=== PATIENT | male | born 1975 | race Caucasian/White ===

== ENCOUNTER 2021-02-25 10:41 | Outpatient (CLI) | payer OTHER, SELFPAY ==
[2021-02-25 11:21] LABS: Creatinine Urine 40.16 mg/dL (40-278); MALB Creatinine Ratio 32.3 mg/g (0-30); Microalbumin Urine Random < 13.0 mg/L
[2021-02-25 11:36] LABS: Hemoglobin A1C 9.8 % (<5.7)
[2021-02-25 12:35] LABS: Alanine Aminotransferase 56 U/L (16-63); Albumin Level 3.5 g/dL (3.4-5.0); Alkaline Phosphatase 72 U/L (46-116); Anion Gap 10 mmol/L (8-16); Aspartate Amino Transferase 23 U/L (15-37); Bilirubin,Total 0.6 mg/dL (0.00-1.00); Blood Urea Nitrogen 16 mg/dL (7-18); Calcium 8.4 mg/dL (8.5-10.1); Carbon Dioxide 27 mmol/L (21-32); Chloride 95 mmol/L (98-108); Cholesterol 252 mg/dL (0-200); Estimated Glomerular Filt Rate 53; HDL Direct 26 mg/dL (40-60); Potassium 4.4 mmol/L (3.5-5.1); Sodium 132 mmol/L (136-145); Total Protein 6.8 g/dL (6.4-8.2)
[2021-02-25 12:47] LABS: Osmolality Calculated 304 mOsm/kg (285-295)
[2021-02-25 12:48] LABS: LDL Cholesterol Calculated 68 mg/dL (<130); Triglycerides 792 mg/dL (0-150)
[2021-02-25 12:49] LABS: LDL Cholesterol Direct 105 mg/dL (0-130)
[2021-02-25 12:59] LABS: Glucose 627 mg/dL (70-99)
== END 2021-02-25 10:42 | disposition home or self-care (01) ==
PROVIDERS: PCP Family Medicine; Visit Provider Family Medicine
DX: E11.9 Type 2 diabetes mellitus without complications (principal)
CPT/HCPCS: 36415; 80053; 80061; 82043; 83036; 83721

== ENCOUNTER 2021-04-01 12:27 | Outpatient (RCR) | payer OTHER, SELFPAY ==
[2021-04-01 12:38] VITALS: BMI 30.4
[2021-04-01 12:43] VITALS: BMI 30.4
== END 2021-06-17 09:14 | disposition home or self-care (01) ==
LOC: ANHDMC 12:27
PROVIDERS: PCP Internal Medicine; Referring Provider Internal Medicine; Visit Provider Internal Medicine
DX: E11.9 Type 2 diabetes mellitus without complications (principal); Z71.3 Dietary counseling and surveillance
CPT/HCPCS: 97802

== ENCOUNTER 2022-12-07 13:18 | Outpatient (CLI) | payer OTHER, SELFPAY ==
[2022-12-07 13:53] LABS: Hemoglobin A1C 11.6 % (<5.7)
== END 2022-12-07 13:19 | disposition home or self-care (01) ==
PROVIDERS: PCP Family Medicine; Visit Provider Family Medicine
DX: E11.9 Type 2 diabetes mellitus without complications (principal)
CPT/HCPCS: 36415; 83036

== ENCOUNTER 2023-01-22 10:42 | Outpatient (CLI) | payer OTHER, SELFPAY ==
--- NOTE | ~2023-01-22 | CT_ITS ---
CT of the Abdomen: Indication: Abdominal pain Technique: 2.5 mm axial scans were obtained through the abdomen prior to and following following int ravenous administration of 100 cc of Omnipaque 350. Dose reduction technique was used on this scan by utilizing automated exposure control and iterative reconstruction technique. The dose-length product (DLP) was 1980.59 mGy-cm. Findings: Scans through the lung bases are unremarkable. There is a 3 cm hypodense right hepatic lobe lesion with discontinuous nodular enhancement on the por aubrie venous phase, compatible with hemangioma (series 6 image 23). There are several additional subcen timeter hypodensities in the liver, which could reflect positional cysts or hemangiomas. The spleen, pancreas, gallbladder, and adrenal glands are within normal limits. There is a 4 mm stone in the proximal left ureter (series 2 image 67), without significant hydronephr osis or hydroureter. Additional bilateral nonobstructing renal stones are present, measuring up to ap proximately 6 mm bilaterally. No right ureteral stone or right hydronephrosis seen. No evidence of ao rtic aneurysm. No lymphadenopathy. Visualized bowel loops are unremarkable. No ascites. Impression: 4 mm proximal left ureteral stone without significant hydronephrosis. Additional bilateral nonobstructing renal stones, as detailed above. Hepatic hemangiomas and possibly small cysts, as detailed above. Reviewed, dictated and finalized at [facility]. 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 Additional bilateral nonobstructing renal stones, as detailed above. Hepatic hemangiomas and possibly small cysts, as detailed above.
[2023-01-22 11:01] LABS: Estimated Glomerular Filt Rate > 60
== END 2023-01-22 10:43 ==
LOC: MICIMG 10:43
PROVIDERS: PCP Internal Medicine Endocrinology, Diabetes & Metabolism; Visit Provider Internal Medicine Endocrinology, Diabetes & Metabolism
DX: R10.9 Unspecified abdominal pain (principal); N20.2 Calculus of kidney with calculus of ureter
CPT/HCPCS: 74170; Q9967

== ENCOUNTER 2023-02-09 06:02 | Emergency (ER) | payer OTHER, SELFPAY ==
[2023-02-09] VITALS (28 sets, daily range): BP systolic 113–147; BP diastolic 76–98; PULSE 70–85; RESP 15–16; TEMP 36.7; O2SAT 92–100
--- NOTE | ~2023-02-09 | CT_ITS ---
Non-contrast CT scan of the Abdomen and Pelvis Clinical indication: Flank pain Technique: 2.5 mm axial scans were obtained through the abdomen and pelvis without intravenous or or al contrast. Dose reduction technique was used on this scan by utilizing automated exposure control a nd iterative reconstruction technique. The dose-length product (DLP) was 453.00 mGy-cm. COMPARISON: 01/22/2023 Findings: Images through the lung bases reveal no abnormalities. There is mild left hydroureteronephrosis and left perinephric stranding. Suspected small left UVJ sto ne present, but evaluation in the pelvis is extremely limited due to extensive streak artifact from b ilateral hip arthroplasties. Additional bilateral nonobstructing renal stones are present in the kidn eys. No right ureteral stone or right hydronephrosis is identified. Stable small probable hepatic cysts noted. The spleen, pancreas, gallbladder, and adrenals appear nor mal. There is no aortic aneurysm. There is no evidence of bowel obstruction. Images through the pelvis are degraded by extensive streak artifact from bilateral hip arthroplasties . There is no evidence of ascites or lymphadenopathy. Visualized urinary bladder is grossly unremarka ble. Bilateral L5 pars interarticularis defects are present, without subluxation. Impression: Mild left hydroureteronephrosis and left perinephric stranding. There is a suspected small left UVJ r egion stone, but pelvic evaluation is markedly limited due to extensive streak artifact from bilatera l hip arthroplasties. Additional bilateral nonobstructing renal stones. Reviewed, dictated and finalized at location . Impression: Mild left hydroureteronephrosis and left perinephric stranding. There is a susp ected small left UVJ region stone, but pelvic evaluation is markedly limited du e to extensive streak artifact from bilateral hip arthroplasties. Additional bilateral nonobstructing renal stones.
[2023-02-09 06:19] LABS: Basophils Absolute Auto 0.1 K/mm3 (0.0-0.1); Eosinophils Absolute Auto 0.3 K/mm3 (0-0.3); Eosinophils Percent Auto 2.1 % (0-4.4); Hematocrit 50.9 % (42.0-52.0); Hemoglobin 17.2 g/dL (14.0-18.0); Immature Granulocyte Absolute 0.04 K/mm3 (0.00-0.031); Immature Granulocyte Percent A 0.3 % (0-0.5); Lymphocytes Absolute Auto 1.85 K/mm3 (0.9-3.2); Lymphocytes Percent Auto 15.1 % (18.3-44.2); Mean Corpuscular HGB Conc 33.8 g/dl (32-36); Mean Corpuscular Volume 91.9 fl (80-100); Mean Platelet Volume 9.7 fl (7.4-10.4); Monocytes Percent Auto 8.5 % (2.6-8.5); Neutrophils Absolute Auto 8.9 K/mm3 (1.3-6.7); Platelet Count Result 186 k/mm3 (150-375); Red Blood Count 5.54 M/mm3 (4.6-6.20); Red Cell Distribution Width 12.1 % (11.5-14.5); White Blood Count 12.2 K/mm3 (4.5-10.0)
--- NOTE | 2023-02-09 07:14 | PC.NURSE ---
Patient report received from MIKO Michael. All questions answered and care of patient assumed.
--- NOTE | 2023-02-09 07:30 | PC.NURSE ---
Dr. Govea at bedside to assess pt.
--- NOTE | 2023-02-09 07:41 | ED.GENADULT ---
HPI - General Adult General Chief complaint: Urogenital-Male Stated complaint: kidney stones? Time Seen by Provider: 02/09/23 07:12 History of Present Illness HPI narrative: 47-year-old male with history of kidney stones diagnosed approximately 3 weeks ago presenting to the emergency department for evaluation of worsening left flank pain. Patient states that he is scheduled to follow-up with urology, Dr. Wagoner. patient reports he has been taking Flomax and does have a few left. Patient states he has used the last of his narcotic pain medication. Patient reports that the pain had been feeling better but then acutely worsened last night at 11 PM. Patient describes worsening flank pain with associated nausea. Patient is scheduled to have follow-up with her in a few weeks for possible lithotripsy. Related Data Allergies Allergy/AdvReac Type Severity Reaction Status Date / Time morphine AdvReac Unknown Unknown Verified 02/09/23 06:03 Review of Systems Review of Systems: All systems reviewed & are unremarkable except as noted in HPI and below PMFSH Past Medical History Medical History Type 2 diabetes mellitus Surgical History Surgical History History of hip surgery Family History Family History Father Alcoholism Mother Diabetes mellitus Heart disease Depression Anxiety Grandparent Cerebrovascular accident Grandparent Cerebrovascular accident Social History Social History Smoking packs per day: 1 Smoking cigarettes per day: 20.0 Years smoked: 25 Smoking pack-years: 25.00 Smoking status: Current every day smoker Tobacco type: cigarettes Alcohol intake: never Substance use: never Lack of Transportation: No Lack of Food: Never True Current Housing: I Have Housing Concerned About Future Housing: No Difficulty Paying Gas/Electric Bills: No Difficulty Paying for Meds: No Currently Unemployed: No Education: High School Diploma/GED Difficulty w/ Childcare or Family Care: No Living arrangements: alone Occupation/Education: occupation 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 HEAD: normocephalic, atraumatic. EYES: PERRLA/EOMI, conjunctivae clear. NOSE: Normal no drainage NECK: Supple. No adenopathy, no masses. RESPIRATORY: Airway patent, respirations nonlabored. Clear to auscultation bilaterally, no rales, rhonchi, wheezing. CARDIOVASCULAR: Regular rate and rhythm without murmurs rubs or gallops. ABDOMINAL: Soft, nontender, nondistended, normal bowel sounds MUSCULOSKELETAL: Moves all extremities. Strength/ROM intact, No edema, No calf tenderness. NEURO: Alert. Cranial nerves II through XII intact. Grossly intact SKIN: Warm, dry. Normal Color Course Course Emergency Course: 47-year-old male with recurrent flank pain secondary to kidney stones. Patient does have a mild leukocytosis of 12.2 but is afebrile. UA shows hematuria but no concern for underlying urinary tract infection. Patient has normal kidney function. Patient was treated with IV Toradol and states his pain is now controlled. Patient was offered additional medications for pain control and nausea control at home. Patient states he will have close follow-up with his urologist as scheduled. All questions and concerns were addressed and patient was comfortable with the plan for discharge and close follow-up. Vital Signs Vital signs: Vital Signs Temperature 98.1 F 02/09/23 06:06 Pulse Rate 85 02/09/23 06:06 Respiratory Rate 16 02/09/23 06:06 Blood Pressure 147/91 H 02/09/23 06:06 Pulse Oximetry 100 02/09/23 0
[2023-02-09] MEDS: fentaNYL CITRATE INJ (*CRX) 100 MCG/2 ML VIAL IV PUSH ×2 (07:57→09:15)
[2023-02-09] MEDS: ONDANSETRON INJ 4 MG/2 ML VIAL IV PUSH (07:57)
[2023-02-09] MEDS: SODIUM CHLORIDE 0.9% IV 1,000 ML 999 ML IV CONT (08:46)
--- NOTE | 2023-02-09 09:12 | PC.NURSE ---
Patient ambulatory to the with steady gait. Urine sample obtained.
[2023-02-09 09:33] LABS: Appearance Urine Clear (Clear); Bacteria Urine None Seen /hpf; Bilirubin Urine Negative (Negative); Blood Urine 1+ (Negative); Color Urine Yellow (Yellow); Glucose Urine UA 3+ mg/dL (Negative); Ketones Urine Negative (Negative); Leukocyte Esterase Ur Negative LEU/UL (Negative); Nitrate Urine Negative (Negative); Non Pathogenic Casts 0-2; Protein Urine Negative (Negative); Specific Grav Ur 1.017 (1.001-1.035); Squamous Epithelial Cell Urine None seen /hpf (Few); Urobilinogen Urine 0.2 mg/dL (<2.0); WBC Urine 0-5 /hpf
[2023-02-09 09:49] LABS: Add Urine Microscopic? YES
[2023-02-09] MEDS: KETOROLAC 15 MG/ML VIAL (*BKC) IV PUSH (09:57)
[2023-02-09 10:46] LABS: Alanine Aminotransferase 32 U/L (6-50); Alkaline Phosphatase 62 U/L (38-126); Anion Gap 2 mmol/L (8-16); Aspartate Amino Transferase 31 U/L (17-59); Bilirubin,Total 0.7 mg/dL (0.2-1.3); Blood Urea Nitrogen 14 mg/dL (9-20); Calcium 8.2 mg/dL (8.4-10.2); Carbon Dioxide 28 mmol/L (22-30); Chloride 105 mmol/L (98-107); Estimated CRCL calculation 95 ml/min; Estimated Glomerular Filt Rate > 60; Glucose 169 mg/dL (65-110); Sodium 135 mmol/L (137-145)
== END 2023-02-09 11:17 | disposition home or self-care (01) ==
PROVIDERS: Internal Medicine Interventional Cardiology; Emergency Provider Emergency Medicine; PCP Urology
DX: N13.2 Hydronephrosis with renal and ureteral calculous obstruction (principal); E11.9 Type 2 diabetes mellitus without complications; F17.210 Nicotine dependence, cigarettes, uncomplicated; Z79.84 Long term (current) use of oral hypoglycemic drugs
CPT/HCPCS: 36415; 74176; 80053; 81001; 85025; 96361; 96374; 96375; 96376; 99284; J1885; J2405; J3010; J7030

== ENCOUNTER 2023-02-15 15:16 | Outpatient (CLI) | payer OTHER, SELFPAY ==
[2023-02-15 17:35] LABS: Bacteria Urine None Seen /hpf; Non Pathogenic Casts 0-2; RBC Urine 51-100 /hpf (0-2); Squamous Epithelial Cell Urine None seen /hpf (Few); WBC Urine 0-5 /hpf (0-3)
[2023-02-15 18:12] LABS: Appearance Urine Clear (Clear); Bilirubin Urine Negative (Negative); Blood Urine 3+ (Negative); Color Urine Yellow (Yellow); Glucose Urine UA 2+ mg/dL (Negative); Ketones Urine Negative (Negative); Leukocyte Esterase Ur Negative LEU/UL (NEGATIVE); Nitrate Urine Negative (Negative); Protein Urine Negative (Negative); Specific Grav Ur >= 1.030 (1.001-1.035); Urobilinogen Urine 0.2 mg/dL (<2.0); pH Urine 5.5 (5.0-9.0)
[2023-02-15 18:13] LABS: Add Urine Microscopic? YES
== END 2023-02-15 15:17 | disposition home or self-care (01) ==
LOC: ANHLAB 15:17
PROVIDERS: PCP Urology; Visit Provider Family Medicine
DX: R30.0 Dysuria (principal)
CPT/HCPCS: 81001; 87086

== ENCOUNTER 2023-02-18 08:33 | Outpatient (CLI) | payer OTHER, SELFPAY ==
--- NOTE | ~2023-02-18 | XR_ITS ---
Supine and upright views of the abdomen Clinical history: Ureteral stone Findings: Bowel gas pattern is nonspecific. No evidence for obstruction or free air. Bilateral lower pole renal stones present, measuring 8 mm on the right, and 6 mm on the left. Bilateral hip arthropla sties noted. Impression: Bilateral lower pole renal stones, as detailed above. Reviewed, dictated and finalized at location . Impression: Bilateral lower pole renal stones, as detailed above.
--- NOTE | ~2023-02-18 | US_ITS ---
EXAMINATION: US retroperitoneal comp DATE: 02/18/2023 09:16 INDICATION: Ureteral calculi TECHNIQUE: Multiple ultrasound grayscale images of the kidneys were obtained. COMPARISON: CT dated 02/09/2023 FINDINGS: The right kidney measures 11.1 x 4.5 x 5.5 cm. The left kidney measures 12.2 x 5.7 x 5.5 cm. The kidn eys demonstrate normal echogenicity. Nonobstructing echogenic and shadowing renal stone stones measur ing 7 mm the lower pole of the right kidney and 8 mm at the lower pole of the left kidney. There is a poorly defined 7 mm echogenic focus at the left ureterovesicular junction consistent with a stone bu t which may resume the size given the relatively small amount of posterior acoustic shadowing. There is no hydronephrosis in either kidney. The bladder is normal with bilateral ureteral jets visualized with color Doppler. IMPRESSION: 1. Bilateral nephrolithiasis with nonobstructing stone at the left ureterovesicular junction. Given the prominent streak artifact on prior CT limiting assessment for size would consider correlation wit h KUB. Reviewed, dictated and finalized at location A. IMPRESSION: 1. Bilateral nephrolithiasis with nonobstructing stone at the left ureterovesi cular junction. Given the prominent streak artifact on prior CT limiting assess ment for size would consider correlation with KUB.
== END 2023-02-18 08:34 | disposition home or self-care (01) ==
LOC: ANHIMG 08:35
PROVIDERS: PCP Urology; Visit Provider Urology
DX: N20.1 Calculus of ureter (principal)
CPT/HCPCS: 74018; 76770

== ENCOUNTER 2023-09-13 16:25 | Outpatient (CLI) | payer OTHER, SELFPAY ==
--- NOTE | ~2023-09-13 | XR_ITS ---
EXAMINATION: XR abdomen/kub 1V DATE: 09/13/2023 16:36 INDICATION: Ureteral calculi. TECHNIQUE: A supine view of the abdomen on 2 radiographs was obtained. COMPARISON: CT abdomen and pelvis 02/09/2023, abdomen radiographs 02/18/2023 FINDINGS: There are no dilated loops of bowel. 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 There is a 6 mm stone in left kidney. IMPRESSION: 1. 6 mm left kidney stone. Reviewed, dictated and finalized at location E. IMPRESSION: 1. 6 mm left kidney stone.
== END 2023-09-13 16:26 | disposition home or self-care (01) ==
PROVIDERS: PCP Urology; Visit Provider Urology
DX: N20.2 Calculus of kidney with calculus of ureter (principal)
CPT/HCPCS: 74018

== ENCOUNTER 2023-11-09 11:30 | Emergency (ER) | payer OTHER, SELFPAY ==
[2023-11-09 11:38] VITALS: BP 135/82; PULSE 111; RESP 20; TEMP 39.2; O2SAT 96
--- NOTE | 2023-11-09 12:43 | ED.URI ---
HPI - URI/Sore Throat General Chief Complaint: Upper Respiratory Infection Stated Complaint: Sore Throat Time Seen by Provider: 11/09/23 12:44 Source: patient Mode of arrival: ambulatory Limitations: no limitations History of Present Illness HPI Narrative: 48 year old male who presents to [facility] care with complaints of fever,sore throat, headache, body aches and cough since 2 pm yesterday. Patient reports that he has not noted any shortness of breath or any wheezing. Patient states that he has taken some Tylenol for his symptoms.Patient reports that he has white spot in the back of his throat. MD elicited complaint: fever, cough, sore throat and other (headaches and body aches) Pertinent past history: pneumonia Onset (ago): day(s) (since 2pm yesterday) Pain scale (0-10): 8 Able to tolerate fluids by mouth: Yes Exacerbating factors: swallowing Treatments prior to arrival: acetaminophen Related Data Home Medications Medication Instructions Recorded Confirmed metformin 500 mg tablet,extended 500 mg PO DAILY 11/09/23 11/09/23 release 24 hr Allergies Allergy/AdvReac Type Severity Reaction Status Date / Time morphine AdvReac Unknown Unknown Verified 11/09/23 12:19 Review of Systems Review of Systems: CONSTITUTIONAL:reports malaise, chills, sweats, or fever. EYES: Denies visual changes, redness, or discharge. ENT: Reports rhinorrhea, congestion, sinus pain, no otalgia and positive for sore throat. CARDIOVASCULAR: Denies chest pain, palpitations, or edema. RESPIRATORY: Reports cough.? Denies dyspnea. GASTROINTESTINAL: Denies abdominal pain, nausea, vomiting, diarrhea SKIN: Denies rash or itching. MUSCULOSKELETAL:reports myalgia. NEUROLOGIC: Reports headache. All systems reviewed & are unremarkable except as noted in HPI and below PMFSH Past Medical History Medical History Type 2 diabetes mellitus Surgical History Surgical History History of hip surgery Family History Family History Father Alcoholism Mother Diabetes mellitus Heart disease Depression Anxiety Grandparent Cerebrovascular accident Grandparent Cerebrovascular accident Social History Social History Smoking packs per day: 1 Smoking cigarettes per day: 20.0 Years smoked: 25 Smoking pack-years: 25.00 Smoking status: Current every day smoker Tobacco type: cigarettes Alcohol intake: never Substance use: never Lack of Transportation: No Lack of Food: Never True Current Housing: I Have Housing Concerned About Future Housing: No Difficulty Paying Gas/Electric Bills: No Difficulty Paying for Meds: No Currently Unemployed: No Education: High School Diploma/GED Difficulty w/ Childcare or Family Care: No Living arrangements: alone Occupation/Education: occupation 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 There is no relevant family history pertinent to the presenting complaint Exam Narrative: GENERAL: Well-appearing, well -nourished, and in no acute distress. HEAD: Normocephalic EYES: PERRLA, conjunctivae clear ENT: Nares clear, turbinates edematous and erythematous, clear discharge. Mucous membranes moist. TM pearly campos with dull light reflex bilaterally; no tragal tenderness. Oropharynx erythematous without lesions. Tonsils enlarged and with white exudate, no drooling, no hoarseness, no trismus, uvula midline.post nasal drainage NECK: Supple. lymphadenopathy CHEST: Clear to auscultation, breath sounds equal. No wheezing, rhonchi, rales, or stridor. No resp
[2023-11-09 12:45] VITALS: TEMP 38.3
== END 2023-11-09 13:05 | disposition home or self-care (01) ==
PROVIDERS: Emergency Provider Registered Nurse
DX: J02.9 Acute pharyngitis, unspecified (principal); Z20.822 Contact with and (suspected) exposure to COVID-19; F17.210 Nicotine dependence, cigarettes, uncomplicated; E11.9 Type 2 diabetes mellitus without complications; Z79.84 Long term (current) use of oral hypoglycemic drugs
CPT/HCPCS: 87081; 87426; 87804; 87880; 99213; C9803; G0463

== ENCOUNTER → 2023-11-15 16:38 | Outpatient (CLI) | payer OTHER, SELFPAY ==
--- NOTE | ~2023-11-15 | XR_ITS ---
EXAMINATION: XR chest 2V 11/15/2023 16:52 INDICATION: Shortness of breath PROCEDURE: 2 view chest COMPARISON: No prior studies for comparison. FINDINGS: The lungs are clear. The cardiomediastinal silhouette is within normal limits. There are no pleural effusions. There is no pneumothorax suspected. IMPRESSION: 1: NO ACUTE CARDIOPULMONARY DISEASE. Reviewed, dictated and finalized at location A. TANNER
== END ==
PROVIDERS: PCP Family Medicine; Visit Provider Family Medicine
DX: J39.8 Other specified diseases of upper respiratory tract (principal)
CPT/HCPCS: 71046

== ENCOUNTER 2023-12-06 10:55 | Emergency (ER) | payer OTHER, SELFPAY ==
[2023-12-06 11:02] VITALS: BP 137/89; PULSE 106; RESP 20; TEMP 37.5; O2SAT 96
--- NOTE | 2023-12-06 11:13 | ED.URI ---
HPI - URI/Sore Throat General Chief Complaint: Upper Respiratory Infection Stated Complaint: sore throat Time Seen by Provider: 12/06/23 11:13 History of Present Illness HPI Narrative: 48-year-old male presented for complaint of left-sided sore throat for about 3 weeks, and has started to have right-sided throat pain for 2 days. He endorses painful swallowing has not been able to eat x2 days, and states he coughs on water. States he feels like is swallowing glass, and endorses nausea and fever. He states his symptoms started as a tonsil stone on the left for which he was seen at [facility] on 11/09 and prescribed amoxicillin (neg strep), and has repeatedly tried to remove the tonsil stone with water picks, salt water gargles etc, and states it is just worsening. Related Data Home Medications Medication Instructions Recorded Confirmed metformin 500 mg tablet,extended 500 mg PO DAILY 11/09/23 11/15/23 release 24 hr Allergies Allergy/AdvReac Type Severity Reaction Status Date / Time morphine AdvReac Unknown Unknown Verified 11/15/23 16:19 Review of Systems Review of Systems: CONSTITUTIONAL: Denies body aches; reports fever, chills EYES: Denies visual changes, redness, or discharge. ENT: Reports throat pain Denies rhinorrhea, congestion, or otalgia. CARDIOVASCULAR: Denies chest pain, palpitations, or edema. RESPIRATORY: Denies dyspnea. GASTROINTESTINAL: Denies abdominal pain, vomiting, or diarrhea. SKIN: Denies rash, itching, or wounds. MUSCULOSKELETAL: Denies back pain, joint pain, or myalgia. NEUROLOGIC: Denies headache PMFSH Past Medical History Medical History Type 2 diabetes mellitus Surgical History Surgical History History of hip surgery Family History Family History Father Alcoholism Mother Diabetes mellitus Heart disease Depression Anxiety Grandparent Cerebrovascular accident Grandparent Cerebrovascular accident Social History Social History Smoking packs per day: 1 Smoking cigarettes per day: 20.0 Years smoked: 25 Smoking pack-years: 25.00 Smoking status: Current every day smoker Tobacco type: cigarettes Alcohol intake: never Substance use: never Do You Feel Safe in your Home?: Yes Lack of Transportation: No Lack of Food: Never True Current Housing: I Have Housing Concerned About Future Housing: No Difficulty Paying Gas/Electric Bills: No Difficulty Paying for Meds: No Currently Unemployed: No Education: High School Diploma/GED Difficulty w/ Childcare or Family Care: No Living arrangements: alone Occupation/Education: occupation 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 EYES: conjunctivae clear ENT: Mucous membranes moist. TMs pearly campos with normal light reflex bilaterally; no tragal tenderness. Oropharynx severely erythematous Tonsils enlarged 3+ L>R with exudate; soft palate erythema/swelling noted. Reports pain opening mouth. No drooling, no trismus, uvula midline. No tripod positioning, hot potato voice NECK: Supple. bilateral anterior cervical lymphadenopathy CHEST: Clear to auscultation, breath sounds equal. No respiratory distress, speaks in full sentences. HEART: Regular rate and rhythm. No murmur heard. SKIN: Warm, dry, no rash. NEURO: Alert and oriented x3. Course Course Emergency Course: Patient is aware of diagnosis, understands and agrees to treatment plan. Anticipatory guidance given. Patient agrees to follow-up as directed and is aware of reasons to seek care at the emergency department. Portions of this record may gill
== END 2023-12-06 11:35 | disposition short-term general hospital (02) ==
LOC: EXPBETH 10:59
PROVIDERS: Emergency Provider Nurse Practitioner Family
DX: J01.90 Acute sinusitis, unspecified (principal); F17.210 Nicotine dependence, cigarettes, uncomplicated; E11.9 Type 2 diabetes mellitus without complications
CPT/HCPCS: 87081; 87880; 99213; G0463

== ENCOUNTER 2023-12-06 12:05 | Emergency (ER) | payer OTHER, SELFPAY ==
--- NOTE | ~2023-12-06 | CT_ITS ---
EXAMINATION: CT soft tissue neck wo con DATE: 12/06/2023 13:05 INDICATION: Sore throat. Swollen throat. TECHNIQUE: Computed tomography (CT) of the neck was performed without intravenous contrast. Automated exposure control and iterative reconstruction technique were employed. The dose-length product was 5 13.14 mGy-cm. COMPARISON: None FINDINGS: The palatine tonsils are enlarged. There is thickening of the epiglottis. No abscess. There is a 17 x 14 mm high right internal jugular chain lymph node. There is mild mucosal thickening in th e paranasal sinuses. There is mild cervical spondylosis. IMPRESSION: 1. Enlarged palatine tonsils and mucosal thickening of the epiglottis, consistent with inflammation. No abscess. 2. Enlarged high right internal jugular chain lymph node, likely reactive. Reviewed, dictated and finalized at location A. HEAD FILLER IMPRESSION: 1. Enlarged palatine tonsils and mucosal thickening of the epiglottis, consiste nt with inflammation. No abscess. 2. Enlarged high right internal jugular chain lymph node, likely reactive.
[2023-12-06 12:30] VITALS: BP 149/87; PULSE 95; RESP 16; TEMP 36.4; O2SAT 95
--- NOTE | 2023-12-06 12:48 | ED.GENADULT ---
HPI - General Adult General Chief complaint: Unspecified Stated complaint: sore throat, r/o abcess Time Seen by Provider: 12/06/23 16:50 History of Present Illness HPI narrative: Lucius Flores is a 48 y/o male who presents with reports of seeing his PCP 3 weeks ago for sore throat and was told he has a tonsillar stone and he was negative for strep/ flu/ covid - he feltl better the past couple weeks but woke up this morning wtih severe sore throat/ feels swollen / fever this AM of 101.3. He feels that there is more swelling on the right side of his throat - On exam difficult to see more swelling on the right appears to have bilateral tonsillar edema with exudate Tonsils +4 Related Data Home Medications Medication Instructions Recorded Confirmed metformin 500 mg tablet,extended 500 mg PO DAILY 11/09/23 11/15/23 release 24 hr Allergies Allergy/AdvReac Type Severity Reaction Status Date / Time morphine AdvReac Unknown Unknown Verified 12/06/23 12:32 Review of Systems Review of Systems: All systems reviewed & are unremarkable except as noted in HPI and below PMFSH Past Medical History Medical History Type 2 diabetes mellitus Surgical History Surgical History History of hip surgery Family History Family History Father Alcoholism Mother Diabetes mellitus Heart disease Depression Anxiety Grandparent Cerebrovascular accident Grandparent Cerebrovascular accident Social History Social History Smoking packs per day: 1 Smoking cigarettes per day: 20.0 Years smoked: 25 Smoking pack-years: 25.00 Smoking status: Current every day smoker Tobacco type: cigarettes Alcohol intake: never Substance use: never Do You Feel Safe in your Home?: Yes Lack of Transportation: No Lack of Food: Never True Current Housing: I Have Housing Concerned About Future Housing: No Difficulty Paying Gas/Electric Bills: No Difficulty Paying for Meds: No Currently Unemployed: No Education: High School Diploma/GED Difficulty w/ Childcare or Family Care: No Living arrangements: alone Occupation/Education: occupation 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 Gender identity (if verbalized by the patient): Male Spiritual care concerns: No Exam Const: General: cooperative, healthy appearing, alert and awake HENMT: Mouth: Yes Abnormal oral and palatal mucosa present (bilateral tonsillar edema) erythematous and edematous Eyes: General: appearance normal, both eyes and all related structures Chest: Chest palpation & inspection: normal inspection of the chest Resp: Effort & Inspection: normal respiratory effort Auscultation: clear to auscultation bilaterally Cardio: Rate: regular rate Skin: General skin exam: normal color Neuro: General: oriented to person, oriented to place and oriented to time Course Vital Signs Vital signs: Vital Signs Temperature 36.4 C 12/06/23 12:30 Pulse Rate 95 12/06/23 12:30 Respiratory Rate 16 12/06/23 12:30 Blood Pressure 149/87 H 12/06/23 12:30 Pulse Oximetry 95 12/06/23 12:30 Temperature 37.4 C 12/06/23 16:55 Pulse Rate 90 12/06/23 20:26 Respiratory Rate 17 12/06/23 20:26 Blood Pressure 132/76 12/06/23 20:26 Pulse Oximetry 94 12/06/23 20:26 Medical Decision Making Vital Signs Vital Signs: Vital Signs Temperature 36.4 C 12/06/23 12:30 Pulse Rate 95 12/06/23 12:30 Respiratory Rate 16 12/06/23 12:30 Blood Pressure 149/87 H 12/06/23 12:30 Pulse Oximetry 95 12/06/23 12:30 Temperature 37.4 C 12/06/23 16:55 Pulse Rate 90 12/06/23 20:26 Respiratory Rate 17 12/06/23 20:26 Blood Pressure 132/76 12/06/23 20:26 Pulse Oximetry 94 01/0
[2023-12-06 15:05] LABS: Basophils Absolute Auto 0.1 K/mm3 (0.0-0.1); Basophils Percent Auto 0.6 % (0.2-1.2); Eosinophils Absolute Auto 0.2 K/mm3 (0-0.3); Eosinophils Percent Auto 1.3 % (0-4.4); Hematocrit 47.4 % (42.0-52.0); Hemoglobin 16.2 g/dL (14.0-18.0); Immature Granulocyte Absolute 0.06 K/mm3 (0.00-0.031); Immature Granulocyte Percent A 0.3 % (0-0.5); Lymphocytes Absolute Auto 2.31 K/mm3 (0.9-3.2); Lymphocytes Percent Auto 13.2 % (18.3-44.2); Mean Corpuscular HGB Conc 34.2 g/dl (32-36); Mean Corpuscular Hemoglobin 30.1 pg (26-34); Mean Corpuscular Volume 87.9 fl (80-100); Mean Platelet Volume 9.7 fl (7.4-10.4); Monocytes Absolute Auto 1.4 K/mm3 (0.1-0.6); Monocytes Percent Auto 7.9 % (2.6-8.5); Neutrophils Absolute Auto 13.4 K/mm3 (1.3-6.7); Neutrophils Percent Auto 76.7 % (45.5-73.1); Platelet Count Result 172 k/mm3 (150-375); Red Blood Count 5.39 M/mm3 (4.6-6.20); Red Cell Distribution Width 12.9 % (11.5-14.5); White Blood Count 17.5 K/mm3 (4.5-10.0)
[2023-12-06 15:50] LABS: Influenza A QL RT-PCR Negative (Negative); Influenza B QL RT-PCR Negative (Negative); RSV RNA, RT-PCR Negative (Negative); SARS-CoV-2 RNA PCR Negative (Negative)
[2023-12-06 16:55] VITALS: BP 128/80; PULSE 95; RESP 16; TEMP 37.4; O2SAT 95
[2023-12-06] MEDS: IPRATROPIUM BR 0.02% INH SOLN 0.5 MG/2.5 ML VIAL INHALATION (17:13)
[2023-12-06] MEDS: ALBUTEROL SULFATE NEB 2.5 MG/3 ML INH INHALATION (17:13)
[2023-12-06 17:14] VITALS: PULSE 89; RESP 20
[2023-12-06 17:24] VITALS: PULSE 96; RESP 20
[2023-12-06 17:55] LABS: Anion Gap 8 mmol/L (8-16); Blood Urea Nitrogen 11 mg/dL (9-20); Calcium 8.8 mg/dL (8.4-10.2); Carbon Dioxide 28 mmol/L (22-30); Chloride 102 mmol/L (98-107); Estimated CRCL calculation 117 ml/min; Estimated Glomerular Filt Rate > 60; Glucose 160 mg/dL (65-110); Potassium 3.7 mmol/L (3.4-5.0); Sodium 138 mmol/L (137-145)
[2023-12-06 19:11] VITALS: BP 137/83; PULSE 95; RESP 18; O2SAT 92
--- NOTE | 2023-12-06 19:15 | PC.NURSE ---
Assumed care of pt from MIKO Enciso at this time.
[2023-12-06] MEDS: AMOXICILLIN/CLAVULANATE K 875-125 MG TAB 1 TABLET PO (20:21)
[2023-12-06 20:26] VITALS: BP 132/76; PULSE 90; RESP 17; O2SAT 94
== END 2023-12-06 20:27 | disposition home or self-care (01) ==
PROVIDERS: Nurse Practitioner Family; Emergency Provider Emergency Medicine; PCP Family Medicine
DX: J02.9 Acute pharyngitis, unspecified (principal); Z20.822 Contact with and (suspected) exposure to COVID-19; E11.9 Type 2 diabetes mellitus without complications; Z79.84 Long term (current) use of oral hypoglycemic drugs
CPT/HCPCS: 36415; 70490; 80048; 85025; 87081; 87637; 87880; 94640; 96374; 99284; A9270; J1100

== ENCOUNTER 2024-03-15 14:32 | Outpatient (CLI) | payer OTHER, SELFPAY ==
--- NOTE | ~2024-03-15 | XR_ITS ---
EXAMINATION: XR abdomen/kub 1V DATE: 03/15/2024 14:52 INDICATION: Ureteral stone. TECHNIQUE: A supine view of the abdomen on 2 radiographs was obtained. COMPARISON: Abdomen radiographs 09/13/2023 FINDINGS: There are no dilated loops of bowel. There is a 7 mm stone in left kidney. There are bilate ral hip arthroplasties. IMPRESSION: 1. 7 mm left kidney stone. Reviewed, dictated and finalized at location E. IMPRESSION: 1. 7 mm left kidney stone.
== END 2024-03-15 14:33 | disposition home or self-care (01) ==
PROVIDERS: Visit Provider Urology
DX: N20.1 Calculus of ureter (principal)
CPT/HCPCS: 74018

== ENCOUNTER 2025-05-02 15:29 | Outpatient (CLI) | payer OTHER, SELFPAY ==
--- NOTE | ~2025-05-02 | XR_ITS ---
XR abdomen/kub 1V Ordering provider: Marj Hernandez, [employer] History: . calculi of ureter . Comparison: None. FINDINGS: BOWEL: Nonobstructive bowel gas pattern. ORGANOMEGALY: None. SIGNIFICANT PATHOLOGIC CALCIFICATIONS: Calcific shadow in the left kidney lower pole which may be a s tone. OTHER: No free air is seen under the diaphragm. Bilateral hip arthroplasty. IMPRESSION: NO ACUTE ABDOMINAL FINDINGS. Possible left kidney stone. Reviewed, dictated and finalized at location A.
--- NOTE | ~2025-05-02 | CT_ITS ---
Non-contrast CT scan of the Abdomen and Pelvis Clinical indication: Ureteral stone Technique: 2.5 mm axial scans were obtained through the abdomen and pelvis without intravenous or or al contrast. Dose reduction technique was used on this scan by utilizing automated exposure control a nd iterative reconstruction technique. The dose-length product (DLP) was 828.13 mGy-cm. COMPARISON: 02/09/2023 Findings: Images through the lung bases reveal no abnormalities. 7 mm nonobstructing left renal stone present. Right kidney unremarkable. No ureteral stone or hydrone phrosis seen in either side. Distal ureters are obscured by streak artifact from bilateral hip arthro plasties. Small left hepatic lobe cysts are present. The spleen, pancreas, gallbladder, and adrenals appear nor mal. There is no aortic aneurysm. There is no evidence of bowel obstruction. Urinary bladder grossly unremarkable. No definite pelvic mass seen. No ascites seen. 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 Impression: 7 mm nonobstructing left renal stone. No evidence of ureteral stone or hydronephrosis on either side. Distal ureters are obscured by streak artifact from bilateral hip arthroplasty. Reviewed, dictated and finalized at [facility]. Impression: 7 mm nonobstructing left renal stone. No evidence of ureteral stone or hydronep hrosis on either side. Distal ureters are obscured by streak artifact from bila teral hip arthroplasty.
== END 2025-05-02 15:30 | disposition home or self-care (01) ==
PROVIDERS: PCP Family Medicine; Visit Provider Nurse Practitioner Family
DX: N20.0 Calculus of kidney (principal)
CPT/HCPCS: 74018; 74176